=== PATIENT | female | born 1970 | race Caucasian/White ===

== ENCOUNTER 2019-04-13 21:05 | Emergency (ER) | payer BC ==
[2019-04-13] MEDS ORDERED: Ketorolac 60 MG/2 ML SDV IM ONE (21:21)
--- NOTE | 2019-04-13 21:23 | EDM.PDOC ---
ED HPI GENERAL MEDICAL PROBLEM - General Chief Complaint: Lower Extremity Injury/Pain Stated Complaint: ANKLE INJURY Time Seen by Provider: 04/13/19 21:20 - History of Present Illness INITIAL COMMENTS - FREE TEXT/NARRATIVE: HISTORY AND PHYSICAL: History of present illness: Patient's 48-year-old white female presents status post injury to her left ankle and foot this occurred when she was carrying a sauna downstairs with her . She denies other concern Review of systems: As per history of present illness and below otherwise all systems reviewed and negative. Past medical history: As per history of present illness and as reviewed below otherwise noncontributory. Surgical history: As per history of present illness and as reviewed below otherwise noncontributory. Social history: No reported history of drug or alcohol abuse. Family history: As per history of present illness and as reviewed below otherwise noncontributory. Physical exam: HEENT: Atraumatic, normocephalic, pupils reactive, negative for conjunctival pallor or scleral icterus, mucous membranes moist, throat clear, neck supple, nontender, trachea midline. Lungs: Clear to auscultation, breath sounds equal bilaterally, chest nontender. Heart: S1S2, regular, negative for clicks, rubs, or JVD. Abdomen: Soft, nondistended, nontender. Negative for masses or hepatosplenomegaly. Negative for costovertebral tenderness. Pelvis: Stable nontender. Genitourinary: Deferred. Rectal: Deferred. Extremities: Left ankle and foot are remarkable for swelling in the region of lateral malleolus Achilles tendon is intact is no crepitation or point tenderness no proximal fibula tenderness. Neuro: Awake, alert, oriented. Cranial nerves II through XII unremarkable. Cerebellum unremarkable. Motor and sensory unremarkable throughout. Exam nonfocal. Diagnostics: X-ray left ankle/foot Therapeutics: Toradol 60 mg IM Impression: #1 acute left ankle/foot injury Definitive disposition and diagnosis as appropriate pending reevaluation and review of above. - Related Data Allergies Allergy/AdvReac Type Severity Reaction Status Date / Time No Known Allergies Allergy Verified 04/13/19 21:22 Home Meds: Home Meds . [No Known Home Meds] 04/13/19 [History] Review of Systems - Review of Systems Review Of Systems: ROS reveals no pertinent complaints other than HPI. ED EXAM, GENERAL - Physical Exam Exam: See Below (Dictation) Course - Vital Signs Last Recorded V/S: Last Vital Signs Temp 36.4 C 04/13/19 21:23 Pulse 77 04/13/19 21:23 Resp 16 04/13/19 21:23 BP 126/90 04/13/19 21:23 Pulse Ox 100 04/13/19 21:23 - Orders/Labs/Meds Meds: Medications Discontinued Medications Generic Name Dose Route Start Last Admin Trade Name Troy PRN Reason Stop Dose Admin Ketorolac Tromethamine 60 mg 04/13/19 21:21 04/13/19 21:41 Toradol IM 04/13/19 21:22 60 mg ONETIME ONE Administration Departure - Departure Time of Disposition: 23:09 Disposition: Home, Self-Care 01 Condition: Good Clinical Impression: Ankle injury - Discharge Information Referrals: PCP,Unknown [Primary Care Provider] - Forms: ED Department Discharge Additional Instructions: The following information is given to patients seen in the emergency department who are being discharged to home. This information is to outline your options for follow-up care. We provide all patients seen in our emergency department with a follow-up referral. The need for follow-up, as well as the timing and circumstances, are variable depending upon the specifics of your emergency department visit. If you don't have a primary care physician on staff, we will provide you with a referral. We always advise you to contact your personal physician following an emergency department visit to inform them of the circumstance of the visit and for follow-up with them and/or the need for any referrals to a consulting specialist. The emergency department will also refer you to a specialist when appropriate. This referral assures that you have the opportunity for followup care with a specialist. All of these measure are taken in an effort to provide you with optimal care, which includes your followup. Under all circumstances we always encourage you to contact your private physician who remains a resource for coordinating your care. When calling for followup care, please make the office aware that this follow-up is from your recent emergency room visit. If for any reason you are refused follow-up, please contact the [facility] emergency department at and asked to speak to the emergency department charge nurse. Shaan wrap crutches as directed Motrin/Tylenol as directed follow-up primary medical doctor as needed as discussed
--- NOTE | 2019-04-13 22:25 | CR ---
Indication: Injury and pain Technique: Left ankle 3 views. Comparison: None Findings: Bones: Alignment is normal. No fractures or bone lesions. Joint spaces: Unremarkable. Soft tissues: Unremarkable. Impression: Unremarkable left ankle. Dictated by Rex Obregon MD @ Apr 13 2019 10:23PM Signed by Dr. Rex Obregon @ Apr 13 2019 10:24PM
--- NOTE | 2019-04-13 22:27 | CR ---
Indication: Injury and pain Technique: Left foot 2 views. Comparison: None Findings: There is a mild hallux valgus with bunion formation. No definite evidence of fracture. Subcortical cysts at the 2nd metatarsophalangeal joint. Minimal dorsal osteophytes. Impression: Mild hallux valgus without evidence of fracture or dislocation. Dictated by Rex Obregon MD @ Apr 13 2019 10:24PM Signed by Dr. Rex Obregon @ Apr 13 2019 10:26PM
== END 2019-04-13 23:20 | disposition home or self-care (01) ==
LOC: MW.ED 21:05
DX: S99.912A Unspecified injury of left ankle, initial encounter (principal); S99.922A Unspecified injury of left foot, initial encounter; X50.1XXA Overexertion from prolonged static or awkward postures, initial encounter
CPT/HCPCS: 73610; 73620; 96372; 99283; J1885

== ENCOUNTER 2021-08-25 15:47 | Emergency (ER) | payer BC ==
[2021-08-25] MEDS ORDERED: Ketorolac 60 MG/2 ML SDV IM ONE (16:08)
[2021-08-25] MEDS ORDERED: Acetaminophen 500 MG Tab PO ONE (16:08)
== END 2021-08-25 17:23 | disposition home or self-care (01) ==
LOC: MW.ED 15:47
DX: S63.502A Unspecified sprain of left wrist, initial encounter (principal); W18.30XA Fall on same level, unspecified, initial encounter
CPT/HCPCS: 73110; 96372; 99283; A9270; J1885

== ENCOUNTER 2022-09-07 19:14 | Day surgery (SDC) | payer BC ==
[2022-09-07] MEDS ORDERED: Ondansetron 4 MG/2 ML SDV IVPUSH ONE (19:19)
[2022-09-07] MEDS ORDERED: Lactated Ringers 1,000 ML IV SCH ×2 (19:30→22:45)
[2022-09-07] MEDS ORDERED: Piperacillin/Tazobactam 4.5 GM in Sodium Chloride 0.9% 100 ML IV ONE (19:48)
[2022-09-07] MEDS ORDERED: Morphine 4 MG/ML Syringe IVPUSH ONE (19:48)
[2022-09-07] MEDS ORDERED: Bupivacaine 0.5% 30 ML SDV ONE (20:24)
[2022-09-07 20:29] LABS: CORONAVIRUS COVID-19 NAA NEGATIVE (NEGATIVE); INFLUENZA A NAA NEGATIVE (NEGATIVE); INFLUENZA B NAA NEGATIVE (NEGATIVE); RESPIRATORY SYNCYTIAL VIR NAA NEGATIVE (NEGATIVE)
[2022-09-07] MEDS ORDERED: Ropivacaine 0.5% 5 MG/ML 30 ML SDV ONE (20:31)
[2022-09-07] MEDS ORDERED: Famotidine 20 MG/2 ML SDV ONE (20:32)
[2022-09-07] MEDS ORDERED: Desflurane 240 ML Bottle ONE (20:33)
[2022-09-07] MEDS ORDERED: Propofol 200 MG/20 ML SDV ONE (20:35)
[2022-09-07] MEDS ORDERED: fentaNYL 100 MCG/2 ML SDV ONE ×2 (20:35→21:38)
[2022-09-07 20:43] LABS: CARBON DIOXIDE,CO2 28.5 mmol/L (21.0-32.0); POTASSIUM,K 3.6 mmol/L (3.5-5.1)
[2022-09-07] MEDS ORDERED: Sugammadex Sodium 200 MG/2 ML VIAL ONE (22:06)
[2022-09-07] MEDS ORDERED: Ondansetron 4 MG/2 ML SDV ONE (22:06)
[2022-09-07] MEDS ORDERED: Rocuronium Bromide 50 MG/5 ML Syringe ONE (22:06)
[2022-09-07] MEDS ORDERED: Glycopyrrolate 0.2 MG/ML SDV ONE (22:06)
[2022-09-07] MEDS ORDERED: ePHEDrine 50 MG/ML SDV ONE (22:06)
[2022-09-07] MEDS ORDERED: Dexamethasone 4 MG/ML 5 ML MDV ONE (22:06)
[2022-09-07] MEDS ORDERED: HYDROmorphone 2 MG/ML Syringe ONE (22:08)
[2022-09-07] MEDS ORDERED: Sodium Chloride 0.9% 2.5 ML Syringe FLUSH PRN (22:44)
[2022-09-07] MEDS ORDERED: Sodium Chloride 0.9% 10 ML Syringe FLUSH PRN (22:44)
[2022-09-07] MEDS ORDERED: HYDROmorphone 1 MG/ML Syringe IVPUSH PRN (22:44)
[2022-09-07] MEDS ORDERED: Ketorolac 30 MG/ML SDV IVPUSH PRN (22:44)
[2022-09-07] MEDS ORDERED: Sodium Chloride 0.9% 20 ML SDV IV PRN (22:44)
[2022-09-07] MEDS ORDERED: Ondansetron 4 MG/2 ML SDV IVPUSH PRN (22:44)
[2022-09-07] MEDS ORDERED: Piperacillin/Tazobactam 3.375 GM in Sodium Chloride 0.9% 50 ML IV SCH (23:00)
[2022-09-08] MEDS: Piperacillin/Tazobactam 2.25 GM in Sodium Chloride 0.9% 50 ML IV SCH ×2 (00:20→06:07)
[2022-09-08] MEDS ORDERED: Piperacillin/Tazobactam 3.375 GM in Sodium Chloride 0.9% 50 ML IV SCH (01:00)
[2022-09-08] MEDS: Acetaminophen/HYDROcodone 325-5 MG Tab PO PRN ×2 (03:50→08:04)
[2022-09-08 06:47] LABS: CARBON DIOXIDE,CO2 26.9 mmol/L (21.0-32.0); POTASSIUM,K 4.2 mmol/L (3.5-5.1)
== END 2022-09-08 10:50 | disposition home or self-care (01) ==
LOC: MW.ED 19:14 → MW.SDS 20:11 → MW.MS 20:11 → MW.SDS 09-08 10:50
PROVIDERS: ATTEND Surgery
DX: K35.80 Unspecified acute appendicitis (principal); L98.9 Disorder of the skin and subcutaneous tissue, unspecified; Z98.890 Other specified postprocedural states; Z20.822 Contact with and (suspected) exposure to COVID-19
CPT/HCPCS: 00840; 0241U; 36415; 64486; 80048; 80053; 83690; 84703; 85025; 85027; 85610; 85730; 86850; 86900; 86901; 96365; 96375; 99285; 99285-25; A9270-GY; J0131; J1100; J1170; J1885; J2270; J2405; J2543; J2704; J2795; J3010; J3490; J7030; J7050; J7120

== ENCOUNTER 2022-09-08 21:40 | Inpatient (IN) | payer BC ==
[2022-09-08] MEDS ORDERED: HYDROmorphone 1 MG/ML Syringe IVPUSH ONE (21:43)
[2022-09-08 22:34] LABS: CARBON DIOXIDE,CO2 26.1 mmol/L (21.0-32.0)
[2022-09-08] MEDS ORDERED: Magnesium Sulfate/Water 2 GM in Premix Bag 1 BAG IV ONE (22:53)
[2022-09-08] MEDS ORDERED: Potassium Chloride 20 MEQ Tab.ER PO ONE (22:53)
[2022-09-08] MEDS ORDERED: Sodium Chloride 0.9% 250 ML IV ONE (23:00)
[2022-09-08] MEDS: Potassium Chloride 100 ML IV SCH (23:15)
[2022-09-08] MEDS ORDERED: Sodium Chloride 0.9% 500 ML IV SCH (23:19)
[2022-09-09] MEDS: Acetaminophen/HYDROcodone 325-5 MG Tab PO PRN ×4 (02:03→20:07)
[2022-09-09] MEDS: Potassium Chloride 100 ML IV SCH (02:35)
[2022-09-09 06:39] LABS: CARBON DIOXIDE,CO2 27.9 mmol/L (21.0-32.0); POTASSIUM,K 4.5 mmol/L (3.5-5.1)
[2022-09-09] MEDS ORDERED: Sodium Chloride 1 GM Tab PO ONE (09:34)
[2022-09-09] MEDS: Ondansetron 4 MG/2 ML SDV IVPUSH PRN (10:35)
[2022-09-09] MEDS: Piperacillin/Tazobactam 3.375 GM in Sodium Chloride 0.9% 50 ML IV SCH ×3 (12:18→23:47)
[2022-09-09] MEDS ORDERED: Azithromycin 500 MG in Sodium Chloride 0.9% 250 ML IV SCH (13:30)
[2022-09-09 13:33] LABS: CARBON DIOXIDE,CO2 25.8 mmol/L (21.0-32.0); POTASSIUM,K 4.7 mmol/L (3.5-5.1)
[2022-09-09 14:32] LABS: CORONAVIRUS COVID-19 NAA NEGATIVE (NEGATIVE); INFLUENZA A NAA NEGATIVE (NEGATIVE); INFLUENZA B NAA NEGATIVE (NEGATIVE)
[2022-09-10] MEDS: Acetaminophen/HYDROcodone 325-5 MG Tab PO PRN ×5 (04:43→22:50)
[2022-09-10] MEDS: Piperacillin/Tazobactam 3.375 GM in Sodium Chloride 0.9% 50 ML IV SCH (06:14)
[2022-09-10 07:17] LABS: CARBON DIOXIDE,CO2 28.1 mmol/L (21.0-32.0); POTASSIUM,K 3.9 mmol/L (3.5-5.1)
[2022-09-10] MEDS: Levofloxacin/Dextrose 5%-Water 750 MG in Premix Bag 1 BAG IV SCH (10:37)
[2022-09-10] MEDS: Ondansetron 4 MG/2 ML SDV IVPUSH PRN ×3 (12:09→22:55)
[2022-09-11] MEDS: Acetaminophen/HYDROcodone 325-5 MG Tab PO PRN ×4 (02:46→20:00)
[2022-09-11 06:22] LABS: CARBON DIOXIDE,CO2 31.7 mmol/L (21.0-32.0); POTASSIUM,K 4.1 mmol/L (3.5-5.1)
[2022-09-11] MEDS: Enoxaparin 40 MG/0.4 ML Syringe SUBCUT SCH (10:05)
[2022-09-11 10:07] LABS: BORDETELLA PARAPERT IS1001 Not Detected (Not Detected)
[2022-09-11] MEDS: Acetaminophen 325 MG Tab PO PRN (21:46)
[2022-09-12] MEDS: Acetaminophen/HYDROcodone 325-5 MG Tab PO PRN ×5 (00:01→23:25)
[2022-09-12 06:38] LABS: CARBON DIOXIDE,CO2 32.1 mmol/L (21.0-32.0); POTASSIUM,K 3.6 mmol/L (3.5-5.1)
[2022-09-12] MEDS: Levofloxacin/Dextrose 5%-Water 750 MG in Premix Bag 1 BAG IV SCH (09:26)
[2022-09-12] MEDS: Enoxaparin 40 MG/0.4 ML Syringe SUBCUT SCH (09:26)
[2022-09-12] MEDS ORDERED: Magnesium Sulfate/Water 2 GM/50 ML Premix Bag IV ONE (11:41)
[2022-09-12] MEDS ORDERED: Magnesium Sulfate/Water 2 GM in Premix Bag 1 BAG IV ONE (12:15)
[2022-09-12] MEDS: Acetaminophen 325 MG Tab PO PRN ×2 (13:41→21:25)
[2022-09-13] MEDS: Acetaminophen/HYDROcodone 325-5 MG Tab PO PRN ×2 (05:35→10:08)
[2022-09-13 07:33] LABS: CARBON DIOXIDE,CO2 30.7 mmol/L (21.0-32.0); POTASSIUM,K 3.9 mmol/L (3.5-5.1)
[2022-09-13] MEDS: Enoxaparin 40 MG/0.4 ML Syringe SUBCUT SCH (10:10)
== END 2022-09-13 13:05 | disposition home or self-care (01) | DRG 469 ==
LOC: MW.ED 21:40 → MW.MS 09-09 00:10 → UNDOADMOB 09-09 00:10 → MW.MS 09-10 14:03 → INTOOBSV 09-11 08:46 → OBSVTOIN 09-11 08:46
PROVIDERS: ADMIT Surgery; ATTEND Surgery
DX: N17.9 Acute kidney failure, unspecified (principal); E87.1 Hypo-osmolality and hyponatremia; J69.0 Pneumonitis due to inhalation of food and vomit; E87.6 Hypokalemia; K59.09 Other constipation; N18.9 Chronic kidney disease, unspecified; E87.70 Fluid overload, unspecified; E83.42 Hypomagnesemia; Z90.49 Acquired absence of other specified parts of digestive tract; Z98.890 Other specified postprocedural states
CPT/HCPCS: 0240U; 36415; 71045; 71045-26; 74019; 74019-26; 80048; 80053; 80202; 81001; 82436; 82570; 82947; 83605; 83690; 83735; 83935; 84133; 84156; 84300; 84484; 85025; 87086; 87486; 87581; 87633; 87641; 87798; 87899; 93005; 93010; 96365; 96366; 96367; 96368; 96375; 96376; 99285; 99285-25; A9270-GY; G0378; J0456; J1170; J1650; J1956; J2405; J2543; J3370; J3475; J3480; J7040; J7050